=== PATIENT | female | born 1980 | race Caucasian/White ===

== ENCOUNTER 2020-07-28 18:17 | Emergency (ER) | payer MEDICARE, MEDICAID ==
[~2020-07-28] VITALS: Ht 157.5 cm; Wt 81.8 kg
[2020-07-28] MEDS ORDERED: haloperidol lactate 5mg/ml inj IM ONE (18:35)
[2020-07-28] MEDS ORDERED: diphenhydrAMINE 50 mg/ml inj IM ONE (18:35)
[2020-07-28] MEDS ORDERED: LORazepam 2 mg/ml vial IM ONE (18:35)
[2020-07-28 19:05] LABS: CLARITY,URINE CLEAR (Clear); COLOR,URINE YELLOW (Yellow); GLUCOSE, URINE NEGATIVE (Neg); KETONES,URINE NEGATIVE (Neg); LEUKOCYTE ESTERASE ,URINE NEGATIVE (Neg); NITRITES, URINE NEGATIVE (Neg); OCCULT BLOOD,URINE NEGATIVE (Neg); PROTEIN,URINE NEGATIVE (Neg); UROBILINOGEN,URINE 0.2 E.U/dL (0.2-1.0)
[2020-07-28 19:05] LABS: BASOPHILS # (AUTO) 0.1 X10'3 (0-0.2); BASOPHILS % (AUTO) 0.7 % (0-1); EOSINOPHILS % (AUTO) 0.3 % (0-6); HEMATOCRIT 36.4 % (35.0-45.0); HEMOGLOBIN 12.2 g/dl (12.0-16.0); LYMPHOCYTES # (AUTO) 3.9 X10'3 (1.1-4.8); LYMPHOCYTES % (AUTO) 38.6 % (21-51); MEAN CORPUSCULAR HEMOGLOBIN 30.2 PG (27.0-31.0); MEAN CORPUSCULAR HGB CONC 33.4 g/dL (33.0-36.5); MEAN CORPUSCULAR VOLUME 90.3 FL (78-98); MEAN PLATELET VOLUME 7.2 FL (7.4-10.4); MONOCYTES # (AUTO) 0.6 X10'3 (0-0.9); MONOCYTES % (AUTO) 6.2 % (2-12); NEUTROPHILS # (AUTO) 5.5 X10'3 (1.8-7.7); NEUTROPHILS % (AUTO) 54.2 % (42-75); PLATELET COUNT 334 X10'3 (140-440); RED BLOOD COUNT 4.03 X10'6 (4.20-5.60); RED CELL DISTRIBUTION WIDTH 12.9 % (11.5-14.5); WHITE BLOOD COUNT 10.1 X10'3 (4.5-11.0)
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
[2020-07-28 19:10] LABS: UA COLLECTION TYPE NON-SPECIFIED
[2020-07-28 19:12] LABS: URINE HCG NEGATIVE (NEG)
[2020-07-28 19:15] LABS: URINE AMPHETAMINE SCREEN NEGATIVE (Neg); URINE BARBITUATE SCREEN NEGATIVE (Neg); URINE BENZODIAZEPINES SCREEN NEGATIVE (Neg); URINE CANNABINOID SCREEN NEGATIVE (Neg); URINE COCAINE SCREEN NEGATIVE (Neg); URINE METHADONE SCREEN NEGATIVE (Neg); URINE OPIATE SCREEN NEGATIVE (Neg); URINE PHENCYCLIDINE SCREEN NEGATIVE (Neg)
[2020-07-28 19:19] LABS: ALANINE AMINOTRANSFERASE 32 U/L (12-78); ALBUMIN 3.6 G/DL (3.4-5.0); ALKALINE PHOSPHATASE 69 IU/L (46-116); ANION GAP 4 (8-16); ASPARTATE AMINO TRANSFERASE 17 U/L (10-37); BILIRUBIN,TOTAL 0.1 MG/DL (0.1-1.0); BLOOD UREA NITROGEN 17 MG/DL (7-18); BUN/CREATININE RATIO 28.3 (6.6-38.0); CALCIUM 9.1 MG/DL (8.5-10.1); CHLORIDE 102 MMOL/L (99-107); GLUCOSE 94 MG/DL (70-104); POTASSIUM 3.9 MMOL/L (3.5-5.1); SODIUM 138 MMOL/L (135-145); TOTAL CARBON DIOXIDE 32.5 MMOL/L (24-32); TOTAL PROTEIN 7.3 G/DL (6.4-8.2); eGFR > 90 ML/MIN
[2020-07-28 19:25] LABS: ETHANOL < 0.010 GM/DL (0.0-0.010)
[2020-07-28] MEDS ORDERED: DIVA-74 PO (19:29)
[2020-07-28] MEDS ORDERED: SERT25TA PO (19:30)
--- NOTE | 2020-07-28 19:35 | NUR ---
Pt is a resident at [facility]. Pt is unsrue of her medications, pt gives permission to call to get medication information. House number is [phone]. Medication information obtained.
--- NOTE | 2020-07-28 19:37 | NUR ---
Director and contact of [facility] is Ana Rosa [phone].
--- NOTE | 2020-07-28 19:44 | NUR ---
med rec completed, faxed to pharmacy
--- NOTE | 2020-07-28 20:39 | NUR ---
Pt up to use the restroom
--- NOTE | 2020-07-28 23:00 | NUR ---
pt asleep on R side, RR 16
--- NOTE | 2020-07-29 01:00 | NUR ---
Pt up to use the restroom
--- NOTE | 2020-07-29 02:19 | NUR ---
Pt asleep on L side RR 16
--- NOTE | 2020-07-29 04:20 | NUR ---
Pt resting quietly RR even and unlabored
[2020-07-29 05:35] VITALS: BP 114/77
--- NOTE | 2020-07-29 06:30 | NUR ---
Pt is lying in bed, appears to be sleeping.
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
--- NOTE | 2020-07-29 07:20 | NUR ---
Lakshmi lees the [facility] office called to request that an updated facesheet be faxed. Facesheet faxed to [facility] office.
--- NOTE | 2020-07-29 07:25 | NUR ---
Assessed pt's vaginal area with female PCT present. Pt was cooperative with the assessment. No redness, rash, or abnormalities noted. Pt stated, "it's inside."
--- NOTE | 2020-07-29 07:30 | NUR ---
Pt was reluctant to take scheduled Depakote and Zoloft stating she is allergic to both medications despite taking both for over a month at her [facility]. She insists that they make her break out and her skin is puffy. She then stated they make her sick. Offered to wait until she had eaten breakfast to give meds. Pt stated, "oh, I'll just take it!" Pt took the meds, provided crackers and juice which pt ate and drank.
[2020-07-29] MEDS ORDERED: divalproex 250mg tablet, delayed-release PO SCH (08:00)
[2020-07-29] MEDS ORDERED: sertraline 25mg tablet PO SCH (08:00)
--- NOTE | 2020-07-29 08:02 | NUR ---
Pt abruptly stood up from bed stating, "thanks for the meds, now I have to throw up!" Pt quickly walked to the bathroom and was heard making loud, dramatic retching noises. She came out of the bathroom and said, "sorry, see they make me sick, no one listens to me." Asked pt if she had thrown up her pills. Pt said no but her stomach just felt bad. Pt continues to insist that she has not seen a medical doctor since arriving here.
--- NOTE | 2020-07-29 08:28 | NUR ---
Pt was up to the bathroom. Pt reports that she threw up her breakfast.
--- NOTE | 2020-07-29 09:38 | NUR ---
Discussed pt's c/o generalized pain, reports of emesis, and elevated TSH with Dr Sullivan. New order for Tylenol 650 mg PO Q4H PRN. Pt now denies nausea and pain. Pt is perseverating on needing an MRI to rule out cancer. Pt states her scars from the mastectomy and implants are probably gone by now. Pt states she is throwing up every morning from her meds. Pt states that no one believes her about her medical problems. Pt states the surgery was done in a hospital near [facility]. Pt states that many people don't believe she is a girl, they think she is a man.
[2020-07-29] MEDS ORDERED: acetaminophen 325mg tablet PO PRN (09:45)
--- NOTE | 2020-07-29 09:55 | NUR ---
Pt is being evaluated by [facility].
--- NOTE | 2020-07-29 10:24 | NUR ---
Pt up to go to the bathroom, pt makes frequent trips to the bathroom.
--- NOTE | 2020-07-29 10:26 | NUR ---
Pt up to the nurses' station to request something to eat, a sandwich was provided.
--- NOTE | 2020-07-29 10:37 | NUR ---
Blayne from [facility] is not upholding the [facility] this afternoon.
--- NOTE | 2020-07-29 11:02 | NUR ---
Pt is being discharged. Ana Rosa from [facility] will pick her up around 1230.
== END 2020-07-29 13:05 | disposition home or self-care (01) ==
LOC: ER 18:18
DX: S00.03XA Contusion of scalp, initial encounter (principal); S00.81XA Abrasion of other part of head, initial encounter; R45.1 Restlessness and agitation; R62.50 Unspecified lack of expected normal physiological development in childhood; F17.200 Nicotine dependence, unspecified, uncomplicated; Z79.899 Other long term (current) drug therapy; X58.XXXA Exposure to other specified factors, initial encounter; Y93.89 Activity, other specified; Y92.89 Other specified places as the place of occurrence of the external cause; Y99.8 Other external cause status
CPT/HCPCS: 36415; 80053; 80305; 80320; 81003; 81025; 84443; 85025; 99285

== ENCOUNTER 2020-09-27 10:22 | Emergency (ER) | payer MEDICARE, MEDICAID ==
[~2020-09-27] VITALS: Ht 160 cm; Wt 85.0 kg
[~2020-09-27 10:22] MED LIST: DIVA-74 PO; SERT25TA PO
[2020-09-27] MEDS ORDERED: CIPR10DR EACH EAR (10:43)
[2020-09-27 11:23] LABS: URINE HCG NEGATIVE (NEG)
[2020-09-27 11:41] LABS: URINE AMPHETAMINE SCREEN NEGATIVE (Neg); URINE BARBITUATE SCREEN NEGATIVE (Neg); URINE BENZODIAZEPINES SCREEN NEGATIVE (Neg); URINE CANNABINOID SCREEN NEGATIVE (Neg); URINE COCAINE SCREEN NEGATIVE (Neg); URINE METHADONE SCREEN NEGATIVE (Neg); URINE OPIATE SCREEN NEGATIVE (Neg); URINE PHENCYCLIDINE SCREEN NEGATIVE (Neg)
--- NOTE | 2020-09-27 12:00 | NUR ---
Pt arrives from ED, ambulating without any issues. Pt was directed to bed and was cooperative. Pt denies any physical needs right now, along with vebalizing that she is not going to take any of the medications that makes her feel like a zombie. Pt did seem mildy anxious but VSS and denies pain or discomfort.
[2020-09-27 12:02] VITALS: BP 116/52
[2020-09-27 12:03] LABS: BASOPHILS % (AUTO) 0.5 % (0-1); EOSINOPHILS # (AUTO) 0.1 X10'3 (0-0.9); EOSINOPHILS % (AUTO) 1.3 % (0-6); HEMATOCRIT 37.2 % (35.0-45.0); HEMOGLOBIN 12.2 g/dl (12.0-16.0); LYMPHOCYTES # (AUTO) 2.2 X10'3 (1.1-4.8); LYMPHOCYTES % (AUTO) 26.6 % (21-51); MEAN CORPUSCULAR HGB CONC 32.7 g/dL (33.0-36.5); MEAN CORPUSCULAR VOLUME 88.7 FL (78-98); MEAN PLATELET VOLUME 7.2 FL (7.4-10.4); MONOCYTES # (AUTO) 0.6 X10'3 (0-0.9); MONOCYTES % (AUTO) 6.7 % (2-12); NEUTROPHILS # (AUTO) 5.4 X10'3 (1.8-7.7); NEUTROPHILS % (AUTO) 64.9 % (42-75); PLATELET COUNT 354 X10'3 (140-440); RED BLOOD COUNT 4.19 X10'6 (4.20-5.60); RED CELL DISTRIBUTION WIDTH 13.3 % (11.5-14.5); WHITE BLOOD COUNT 8.3 X10'3 (4.5-11.0)
[2020-09-27 12:29] LABS: ALANINE AMINOTRANSFERASE 44 U/L (12-78); ALBUMIN 3.6 G/DL (3.4-5.0); ALKALINE PHOSPHATASE 67 IU/L (46-116); ANION GAP 8 (8-16); ASPARTATE AMINO TRANSFERASE 29 U/L (10-37); BILIRUBIN,TOTAL 0.2 MG/DL (0.1-1.0); BLOOD UREA NITROGEN 11 MG/DL (7-18); BUN/CREATININE RATIO 18.3 (6.6-38.0); CALCIUM 9.4 MG/DL (8.5-10.1); CHLORIDE 102 MMOL/L (99-107); ETHANOL < 0.010 GM/DL (0.0-0.010); GLUCOSE 95 MG/DL (70-104); POTASSIUM 3.9 MMOL/L (3.5-5.1); SODIUM 139 MMOL/L (135-145); TOTAL CARBON DIOXIDE 29.5 MMOL/L (24-32); TOTAL PROTEIN 7.1 G/DL (6.4-8.2); eGFR > 90 ML/MIN
[2020-09-27] MEDS ORDERED: KEN0.1O TP (13:44)
[2020-09-27] MEDS ORDERED: SERT25TA PO (13:46)
[2020-09-27] MEDS ORDERED: LURA40TA3 PO (13:50)
--- NOTE | 2020-09-27 14:00 | NUR ---
Benjamin from [facility] called ([phone]) req face sheet and copy of [phone] faxed to [phone].
[2020-09-27] MEDS ORDERED: LORazepam 1 MG tablet PO ONE (14:10)
[2020-09-27] MEDS ORDERED: ibuprofen tablet 400 MG TABLET PO ONE (14:10)
[2020-09-27] MEDS ORDERED: benzonatate 100mg capsule PO ONE (14:10)
--- NOTE | 2020-09-27 15:41 | NUR ---
call from [facility]: accepting md Ballard pt going to [address] [place] [address]
--- NOTE | 2020-09-27 15:43 | NUR ---
CALL FROM [facility] THEY WILL BE HERE APROX [phone]
[2020-09-27] MEDS ORDERED: Cipro HC otic suspension 10ML bottle EACH EAR SCH (20:00)
== END 2020-09-27 16:52 ==
LOC: ER 10:23
DX: F20.9 Schizophrenia, unspecified (principal); N39.0 Urinary tract infection, site not specified; F32.9 Major depressive disorder, single episode, unspecified; H92.03 Otalgia, bilateral; M79.18 Myalgia, other site; Z79.899 Other long term (current) drug therapy
CPT/HCPCS: 36415; 80053; 80305; 80320; 81025; 85025; 99285

== ENCOUNTER 2024-06-27 14:50 | Emergency (ER) | payer MEDICARE, MEDICAID ==
[~2024-06-27] VITALS: Ht 160 cm; Wt 81.0 kg
[~2024-06-27 14:50] MED LIST changes: -DIVA-74 PO; +KEN0.1O TP; +LURA40TA2 PO
[2024-06-27] MEDS ORDERED: NA P133E RC (16:21)
[2024-06-27] MEDS ORDERED: SENN-360 PO (16:21)
[2024-06-27] MEDS ORDERED: POLY119P2 PO (16:21)
[2024-06-27 16:28] VITALS: BP 120/60; PULSE 68; RESP 16; TEMP 97.7; O2SAT 99
== END 2024-06-27 16:30 | disposition home or self-care (01) ==
LOC: ER 14:51
DX: K59.00 Constipation, unspecified (principal); F20.9 Schizophrenia, unspecified; F32.A Depression, unspecified; Z79.899 Other long term (current) drug therapy
CPT/HCPCS: 99282; A6402; A6446; A6449